=== PATIENT | female | born 1975 | race Caucasian/White ===

== ENCOUNTER → 2023-09-26 19:06 | Outpatient (REF) | payer OTHER, SELFPAY | LOC: WDC 19:06 | PROVIDERS: ATTENDING PHYSICIAN Obstetrics & Gynecology; FAMILY PHYSICIAN Family Medicine | DX: Z12.31 Encounter for screening mammogram for malignant neoplasm of breast (principal) | CPT/HCPCS: 77063; 77067 ==

== ENCOUNTER → 2024-09-26 19:11 | Outpatient (REF) | payer OTHER, SELFPAY | LOC: WDC 19:11 | PROVIDERS: ATTENDING PHYSICIAN Family Medicine | DX: Z12.31 Encounter for screening mammogram for malignant neoplasm of breast (principal) | CPT/HCPCS: 77063; 77067 ==